=== PATIENT | male | born 1945 | race Caucasian/White ===

== ENCOUNTER 2017-05-17 13:18 | Inpatient (IN) | payer MEDICAID ==
[~2017-05-17] VITALS: Ht 170.2 cm; Wt 76.5 kg
--- NOTE | 2017-05-17 14:07 | NUR ---
PRESENTS SELF TO ED DT RUQ ABDOMINAL PAIN, 10/10, NON RADIATING X 3 DAYS. PATIENT DENIES NAUSEA AND VOMITTING. SKIN IS WARM TO TOUCH AND NON DIAPHORETIC. AFEBRILE. VSS
[2017-05-17 14:31] LABS: BASOPHILS # (AUTO) 0.1 /CMM (0.0-0.2); BASOPHILS % (AUTO) 0.4 % (0.0-2.0); EOSINOPHILS # (AUTO) 0.1 /CMM (0.0-0.7); EOSINOPHILS % (AUTO) 0.9 % (0.0-6.0); HEMATOCRIT 34 % (39-51); HEMOGLOBIN 11.5 g/dL (13.5-17.5); LYMPHOCYTES # (AUTO) 2.4 /CMM (0.8-4.8); LYMPHOCYTES % (AUTO) 14.7 % (20.0-44.0); MEAN CORPUSCULAR HEMOGLOBIN 32 PG (26.0-33.0); MEAN CORPUSCULAR HGB CONC 34 g/dl (31.0-36.0); MEAN CORPUSCULAR VOLUME 94 fL (80-96); MONOCYTES # (AUTO) 1.2 /CMM (0.1-1.30); MONOCYTES % (AUTO) 7.3 % (2.0-12.0); NEUTROPHILS # (AUTO) 12.9 /CMM (1.8-8.9); NEUTROPHILS % (AUTO) 76.7 % (43.0-81.0); PLATELET COUNT (AUTO) 199 /CMM (150-450); RDW COEFFICIENT OF VARIATION 12.3 (11.5-15.0); RED BLOOD CELL COUNT(AUTO) 3.65 MIL/uL (4.5-6.0); WHITE BLOOD COUNT (AUTO) 16.7 K/uL (4.3-11.0)
[2017-05-17 14:41] LABS: CALCIUM, SERUM 8.6 mg/dL (8.5-10.1); CREATININE 2.9 mg/dL (0.6-1.3); POTASSIUM 3.2 mmol/L (3.5-5.1)
[2017-05-17 14:46] LABS: ALBUMIN 3.5 g/dL (3.4-5.0); BILIRUBIN,DIRECT 0.3 mg/dL (0.0-0.2); BILIRUBIN,TOTAL 1.8 mg/dL (0.2-1.0); TOTAL PROTEIN, SERUM 7.2 g/dL (6.4-8.2)
[2017-05-17] MEDS ORDERED: FENTANYL PF 100MCG/2ML AMPUL IV ONE (15:00)
[2017-05-17] MEDS ORDERED: IV NS 0.9% 1,000 ML BAG IV ONE ×2 (15:00)
[2017-05-17] MEDS ORDERED: FENTANYL PF 100MCG/2ML AMPUL ONE (15:05)
[2017-05-17 15:40] LABS: EOSINOPHILS % (MANUAL) 1 % (0-4); LYMPHOCYTES % (MANUAL) 22 % (16-48); MONOCYTES % (MANUAL) 4 % (0-11.0); NEUTROPHILS % (MANUAL) 73 (42-76)
[2017-05-17] MEDS: PIPERACILLIN /TAZOBACTAM 2.25 G in IV D5W 50 ML IV ONE ×2 (15:45→16:20)
[2017-05-17] MEDS ORDERED: ATEN25TA PO (15:46)
[2017-05-17] MEDS ORDERED: LISI2.5T2 PO (15:46)
[2017-05-17] MEDS ORDERED: CHOL100040 PO (15:46)
[2017-05-17] MEDS ORDERED: ATOR20TA PO (15:46)
--- NOTE | 2017-05-17 15:53 | NUR ---
CALLED SURGERY KILN OPERATOR HELPER DR MANCIA, LEFT VOICEMAIL.
--- NOTE | 2017-05-17 15:58 | NUR ---
CALLED [employer], STAFFING RECRUITER WAS PAGED.
[2017-05-17] MEDS ORDERED: POTASSIUM CL. PREMIX PERIPHER. 50 ML IV SCH (16:00)
--- NOTE | 2017-05-17 16:01 | NUR ---
SIMONE IN PROGRESS
[2017-05-17] MEDS ORDERED: POTASSIUM CL. PREMIX PERIPHER. 50 ML ONE (16:10)
--- NOTE | 2017-05-17 16:18 | NUR ---
RECALLED SURGERY MARINE MACHINIST DR MANCIA, LEFT VOICEMAIL.
--- NOTE | 2017-05-17 16:39 | NUR ---
DR BINGHAM ON THE PHONE WITH SURGERY SOCIAL SERVICE COORDINATOR DR MANCIA.
--- NOTE | 2017-05-17 16:59 | NUR ---
TEXTED [facility]
--- NOTE | 2017-05-17 17:00 | NUR ---
[facility]
--- NOTE | 2017-05-17 17:10 | NUR ---
PT TRNSPORTED TO TELE.VSS
[2017-05-17 17:30] VITALS: BP 122/62
--- NOTE | 2017-05-17 17:30 | NUR ---
RN NOTE RECEIVED PT AMBULATORY, AOX4, NO SOB, CO PAIN 10/10, IV IN R FA 18 G, INTACT, ON TELE MONITOR SB 54 BPM, SKIN INTACT, CALL LIGHT WITHIN REACH, BED IN LOW AND LOCKED POSITION, WAITING FOR MRI ABD AND DOCTOR'S ROUNDING AND ADMITTING ORDERS. WILL CONTINUE TO MONITOR.
[2017-05-17] MEDS ORDERED: MORPHINE SULFATE INJ 2 MG/ML DISP.SYRIN IV PRN (18:00)
[2017-05-17] MEDS ORDERED: PIPERACILLIN /TAZOBACTAM 3.375 G in IV D5W 50 ML IV SCH (18:00)
[2017-05-17] MEDS ORDERED: Z GUARD REMEDY 2 OZ OINT TP PRN (18:00)
[2017-05-17] MEDS ORDERED: ONDANSETRON HCL/PF 4 MG/2 ML VIAL IVP PRN (18:00)
[2017-05-17] MEDS: Potassium Chloride 40 MEQ in IV D5/0.45 NACL 1,000 ML IV PRN (19:15)
[2017-05-17 20:00] VITALS: BP_SYST 128; BP_SYST 137; BP_DIAS 72; BP_DIAS 84
--- NOTE | 2017-05-17 20:00 | NUR ---
RN NOTES RECEIVED PT AWAKE ALERT ORIENTED X 3 ABLE TO MAKE KNOWN NEEDS. FAMILY AT BEDSIDE. NO SOB ON RA. SATING 98%. AFEBRILE. C/O PAIN AT HIS ABDOMEN AT SCALE OF 10/10. SR HR 64. IV ON RFA G 18 RUNNING WITH D5 1/2 NS + KCL 40 MEQ @ 100 CC/HR. PAIN MEDICINE WILL BE GIVEN ORDERED. KEPT PT CLEAN AND COMFORTABLE IN BED. WILL CONTINUE TO MONITOR.
[2017-05-17] MEDS: MORPHINE SULFATE INJ 4 MG/ML DISP.SYRIN IV PRN ×2 (20:13→23:43)
[2017-05-17] MEDS: PIPERACILLIN /TAZOBACTAM 2.25 G in IV D5W 50 ML IV SCH (20:13)
[2017-05-17] MEDS ORDERED: MORPHINE SULFATE INJ 4 MG/ML DISP.SYRIN IV PRN (20:30)
--- NOTE | 2017-05-17 20:40 | NUR ---
RN NOTES RN NOTES CALLED [facility] SPOKE WITH DR. GAUTAM WINTER PT COMPLAIN OF HEADACHE. WITH ORDER TO GIVE TYLENOL ORDER. ADMINISTERED TO PATIENT VIA GT WILL CONTINUE TO MONITOR. Addendum: 05/17/17 at 2319 by STEFFANIE TEE RN RN NOTES WRONG PATIENT...
[2017-05-18] VITALS: BP 133/78
[2017-05-18 04:00] VITALS: BP 141/76
[2017-05-18] MEDS: PIPERACILLIN /TAZOBACTAM 2.25 G in IV D5W 50 ML IV SCH ×3 (05:17→18:26)
[2017-05-18] MEDS: Potassium Chloride 40 MEQ in IV D5/0.45 NACL 1,000 ML IV PRN ×2 (05:19→18:26)
[2017-05-18] MEDS: MORPHINE SULFATE INJ 4 MG/ML DISP.SYRIN IV PRN ×4 (05:51→23:02)
--- NOTE | 2017-05-18 07:00 | NUR ---
RN NOTES PT STILL COMPLAINING OF PAIN ON RLQ. PAIN MEDICINE EFFECTIVE FOR AWHILE. ALL NEEDS ATTENDED. NO ACUTE RESP DISTRESS. ALL DUE MEDICINE GIVEN ORDERED. TOLERATED WELL IV ATB GIVEN ORDERED. NO ASE NOTED. PT IS AWARE THAT HE IS NPO AT THIS TIME. ENDORSED CONTINUITY OFC ARE TO AM NURSE.
[2017-05-18 07:16] LABS: BASOPHILS % (AUTO) 0.1 % (0.0-2.0); EOSINOPHILS # (AUTO) 0.2 /CMM (0.0-0.7); EOSINOPHILS % (AUTO) 1.5 % (0.0-6.0); HEMATOCRIT 31 % (39-51); LYMPHOCYTES # (AUTO) 1.6 /CMM (0.8-4.8); LYMPHOCYTES % (AUTO) 12.9 % (20.0-44.0); MEAN CORPUSCULAR HEMOGLOBIN 33 PG (26.0-33.0); MEAN CORPUSCULAR HGB CONC 35 g/dl (31.0-36.0); MEAN CORPUSCULAR VOLUME 94 fL (80-96); MONOCYTES % (AUTO) 7.9 % (2.0-12.0); NEUTROPHILS # (AUTO) 9.6 /CMM (1.8-8.9); NEUTROPHILS % (AUTO) 77.6 % (43.0-81.0); PLATELET COUNT (AUTO) 157 /CMM (150-450); RDW COEFFICIENT OF VARIATION 13.1 (11.5-15.0); RED BLOOD CELL COUNT(AUTO) 3.35 MIL/uL (4.5-6.0); WHITE BLOOD COUNT (AUTO) 12.4 K/uL (4.3-11.0)
[2017-05-18 07:26] LABS: ALBUMIN 2.5 g/dL (3.4-5.0); BILIRUBIN,TOTAL 2.6 mg/dL (0.2-1.0); CREATININE 1.3 mg/dL (0.6-1.3); MAGNESIUM 1.8 mg/dL (1.8-2.4); PHOSPHORUS 2.7 mg/dL (2.5-4.9); POTASSIUM 2.9 mmol/L (3.5-5.1); TOTAL PROTEIN, SERUM 6.3 g/dL (6.4-8.2)
[2017-05-18 07:40] LABS: THYROID STIMULATING HORMONE 1.561 uIU/mL (0.358-3.74)
[2017-05-18 08:00] VITALS: BP 137/75
[2017-05-18] MEDS: FAMOTIDINE/PF INJ 20 MG/2 ML VIAL IV SCH (09:00)
[2017-05-18] MEDS ORDERED: POTASSIUM CL. PREMIX PERIPHER. 50 ML IV SCH (10:48)
[2017-05-18] MEDS: POTASSIUM CHLORIDE 20 MEQ TAB.PRT.SR PO SCH ×2 (11:40→12:45)
[2017-05-18 12:00] VITALS: BP 121/76
[2017-05-18] MEDS ORDERED: IBUPROFEN 400 MG TABLET PO PRN (12:30)
--- NOTE | 2017-05-18 12:38 | NUR ---
SSIS DEVELOPER NOTE PATIENT GAVE ME A LIST OF HIS HOME MEDICATIONS- SHOWN TO DR. MOODY HERRERA. DOCTOR GAVE A VERBAL ORDER TO INPUT MEDICATIONS IN PATIENTS ORDERS- INFORMED MD THAT MEDICATIONS HAVE BEEN INPUT FOR DOCTOR TO REVIEW.
[2017-05-18] MEDS: ATENOLOL 50 MG TABLET PO SCH (12:46)
[2017-05-18 16:00] VITALS: BP 111/69
--- NOTE | 2017-05-18 18:03 | NUR ---
SPOKE TO MOODY HERRERA WHO SAID THE SURGEON WONT BE ABLE TO OPERATE UNTIL POSSIBLY MONDAY. MD GAVE VERBAL ORDERS TO START REGULAR DIET. INFORMED PATIENT.
--- NOTE | 2017-05-18 19:05 | NUR ---
RN OPENING NOTES RECEIVED REPORT FROM AKSHAT MCNEAL. PATIENT A/A/O X4, ABLE TO MAKE NEEDS KNOWN. NO C/O OF RESPIRATORY DISTRESS OR SOB, ON ROOM AIR. ON TELE SINUS DAVID IN THE 50S-60S. DENIES ANY PAIN OR DISCOMFORT. RIGHT FOREARM IV SITE #18 CDI W/ D5 1/2 NS + KCL 40 MEQ @ 100 ML/HR. AMBULATORY W/ BRP. BED LOCKED AND IN LOWEST POSITION, CALL LIGHT WITHIN REACH. FAMILY @ BEDSIDE. WILL CONTINUE TO MONITOR.
[2017-05-18 20:00] VITALS: BP 113/67
[2017-05-18] MEDS: TAMSULOSIN 0.4 MG CAP.SR.24H PO SCH (22:03)
[2017-05-19] VITALS: BP 147/75
[2017-05-19] MEDS: PIPERACILLIN /TAZOBACTAM 2.25 G in IV D5W 50 ML IV SCH ×5 (00:08→23:29)
[2017-05-19 04:00] VITALS: BP 167/75
--- NOTE | 2017-05-19 06:00 | NUR ---
RN NOTES PATIENT SEEN AND EXAMINED BY DR MANCIA, SURGEON. PER MD, HE WILL NOT PERFORM SURGERY TODAY AND OKAY FOR PATIENT TO EAT TODAY 05/19.
--- NOTE | 2017-05-19 07:04 | NUR ---
RN CLOSING NOTES PATIENT AWAKE IN BED. NO ACUTE RESPIRATORY DISTRESS THROUGHOUT SHIFT. TELE SINUS RHYTHM THROUGHOUT IN THE 60S. RIGHT FOREARM IV SITE DC'D AND NEW IV SITE STARTED ON LEFT WRIST #22 W/ D5 1/2 NS + KCL 40 MEQ @ 100 ML/HR, TOLERATED WELL. NO SIGNIFICANT CHANGES OVERNIGHT. DENIES ANY PAIN OR DISCOMFORT @ THIS TIME. WILL ENDORSE JUNAID TO AM NURSE.
[2017-05-19 08:00] VITALS: BP 156/93
[2017-05-19] MEDS: ATORVASTATIN 40 MG TABLET PO SCH (08:11)
[2017-05-19] MEDS: LISINOPRIL (20MG) 20 MG TABLET PO SCH (08:11)
[2017-05-19] MEDS: CHOLECALCIFEROL (VITAMIN D 3) 400 UNIT TABLET PO SCH (08:11)
[2017-05-19] MEDS: ATENOLOL 50 MG TABLET PO SCH (08:12)
[2017-05-19] MEDS: FOLIC ACID 1 MG TABLET PO SCH (08:12)
[2017-05-19] MEDS: ASPIRIN 81 MG TAB.CHEW PO SCH (08:12)
[2017-05-19] MEDS: FAMOTIDINE/PF INJ 20 MG/2 ML VIAL IV SCH (08:12)
[2017-05-19] MEDS ORDERED: HOME MED MISCELLANEOUS PO SCH (09:00)
[2017-05-19 10:16] LABS: BASOPHILS % (AUTO) 0.1 % (0.0-2.0); EOSINOPHILS # (AUTO) 0.2 /CMM (0.0-0.7); EOSINOPHILS % (AUTO) 1.6 % (0.0-6.0); HEMATOCRIT 37 % (39-51); HEMOGLOBIN 12.5 g/dL (13.5-17.5); LYMPHOCYTES # (AUTO) 1.9 /CMM (0.8-4.8); LYMPHOCYTES % (AUTO) 13.9 % (20.0-44.0); MEAN CORPUSCULAR HEMOGLOBIN 32 PG (26.0-33.0); MEAN CORPUSCULAR HGB CONC 33 g/dl (31.0-36.0); MEAN CORPUSCULAR VOLUME 95 fL (80-96); MONOCYTES # (AUTO) 0.8 /CMM (0.1-1.30); MONOCYTES % (AUTO) 6.2 % (2.0-12.0); NEUTROPHILS # (AUTO) 10.5 /CMM (1.8-8.9); NEUTROPHILS % (AUTO) 78.2 % (43.0-81.0); PLATELET COUNT (AUTO) 223 /CMM (150-450); RED BLOOD CELL COUNT(AUTO) 3.94 MIL/uL (4.5-6.0); WHITE BLOOD COUNT (AUTO) 13.5 K/uL (4.3-11.0)
[2017-05-19 10:26] LABS: ALBUMIN 3.1 g/dL (3.4-5.0); BILIRUBIN,TOTAL 1.7 mg/dL (0.2-1.0); CALCIUM, SERUM 9.4 mg/dL (8.5-10.1); CREATININE 1.3 mg/dL (0.6-1.3); MAGNESIUM 1.9 mg/dL (1.8-2.4); PHOSPHORUS 3.2 mg/dL (2.5-4.9); POTASSIUM 3.9 mmol/L (3.5-5.1)
[2017-05-19] MEDS: MORPHINE SULFATE INJ 4 MG/ML DISP.SYRIN IV PRN (11:25)
[2017-05-19 16:00] VITALS: BP 136/79
--- NOTE | 2017-05-19 19:30 | NUR ---
MS RN NOTE RECEIVED PATIENT FROM DAY SHIFT, PATIENT IS ALERT AND ORIENTEDX4, NO S/S OF RESPIRATORY DISTRESS OR PAIN AT THIS TIME. IV ON LEFT WRIST 22G IS PATENT AND INTACT, OKAY TO HOLD THE FLUID PER DR SHAIKH. PLANNING TO HAVE SURGERY TOMORROW FOR CHOLECYSTITIS, WILL F/U WITH SURGEON. SRX2, BED IN LOW POSITION, CALL LIGHT WITHIN REACH, WILL CONTINUE TO MONITOR PATIENT.
--- NOTE | 2017-05-19 19:34 | NUR ---
PER MOODY HERRERA, NPO IN AM AND OK TO HOLD IV FLUIDS AT THIS TIME PATIENT REQUESTS THEM HELD.
[2017-05-19 20:00] VITALS: BP 149/80
--- NOTE | 2017-05-19 20:30 | NUR ---
MS RN NOTE DR. MARTINO SAW THE PATIENT AND PLANNING TO DO LAPAROSCOPIC CHOLECYSTECTOMY TOMORROW IN AM. FAMILY MADE AWARE AND GOT CONSENT FORMS FROM THE PATIENT.
[2017-05-19 21:00] VITALS: BP 149/80
[2017-05-19] MEDS: TAMSULOSIN 0.4 MG CAP.SR.24H PO SCH (21:10)
[2017-05-19] MEDS: HYDROCODONE/APAP 5/325MG 1 EACH TABLET PO PRN (21:15)
[2017-05-20] VITALS (7 sets, daily range): BP systolic 127–175; BP diastolic 61–90
--- NOTE | 2017-05-20 04:30 | NUR ---
MS RN NOTES PTS NOTED BLOOD PRESSURE OF 180/[address] HERRMANN AWAITING FOR REPLY.MORPHINE 2MG GIVEN ORDERED FOR PAIN.WILL CONTINUE TO MONITOR PTS.
[2017-05-20] MEDS: PIPERACILLIN /TAZOBACTAM 2.25 G in IV D5W 50 ML IV SCH ×3 (05:26→21:48)
--- NOTE | 2017-05-20 06:20 | NUR ---
MS RN NOTE PATIENT'S IV WAS PULLED OUT, REINSERTED ON RIGHT FA 20G, GOOD BLOOD RETURN PRESENT. LEFT ARM WAS SWOLLEN, PROVIDED ICE PACK WELL.
--- NOTE | 2017-05-20 06:45 | NUR ---
MS RN NOTE PATIENT IS RESTING IN BED, NO ACUTE CHANGE OF CONDITION PRESENT DURING THE DIRECTOR OF BROADCAST. IV IS PATENT AND INTACT, NO S/S OF RESPIRATORY DISTRESS OR PAIN. WILL ENDORSE TO DAY SHIFT NURSE FOR JUNAID.
[2017-05-20 06:47] LABS: BASOPHILS % (AUTO) 0.3 % (0.0-2.0); EOSINOPHILS # (AUTO) 0.3 /CMM (0.0-0.7); EOSINOPHILS % (AUTO) 2.5 % (0.0-6.0); HEMATOCRIT 32 % (39-51); HEMOGLOBIN 10.7 g/dL (13.5-17.5); LYMPHOCYTES # (AUTO) 1.7 /CMM (0.8-4.8); LYMPHOCYTES % (AUTO) 14.3 % (20.0-44.0); MEAN CORPUSCULAR HEMOGLOBIN 32 PG (26.0-33.0); MEAN CORPUSCULAR HGB CONC 34 g/dl (31.0-36.0); MEAN CORPUSCULAR VOLUME 95 fL (80-96); MONOCYTES % (AUTO) 8.8 % (2.0-12.0); NEUTROPHILS # (AUTO) 8.7 /CMM (1.8-8.9); NEUTROPHILS % (AUTO) 74.1 % (43.0-81.0); PLATELET COUNT (AUTO) 201 /CMM (150-450); RDW COEFFICIENT OF VARIATION 13.1 (11.5-15.0); RED BLOOD CELL COUNT(AUTO) 3.35 MIL/uL (4.5-6.0); WHITE BLOOD COUNT (AUTO) 11.8 K/uL (4.3-11.0)
[2017-05-20 07:06] LABS: ALBUMIN 2.8 g/dL (3.4-5.0); BILIRUBIN,TOTAL 1.1 mg/dL (0.2-1.0); CALCIUM, SERUM 8.7 mg/dL (8.5-10.1); CREATININE 1.5 mg/dL (0.6-1.3); MAGNESIUM 1.8 mg/dL (1.8-2.4); PHOSPHORUS 3.7 mg/dL (2.5-4.9); POTASSIUM 3.2 mmol/L (3.5-5.1); TOTAL PROTEIN, SERUM 7.4 g/dL (6.4-8.2)
--- NOTE | 2017-05-20 07:15 | NUR ---
MS RN NOTE: RECEIVED PATIENT SITTING IN CHAIR IN BED A&OX4. ON RA WITH NO SIGNS OF SOB OR RESPIRATORY DISTRESS. SKIN WARM TO TOUCH, DENIES PAIN. RFA # 20G INTACT AND PATENT. CARE PLAN REVIEWED WITH PATIENT. BED LOW, LOCKED WITH CALL LIGHT WITHIN REACH. ALL NEEDS MET AND ANTICIPATED. WILL CONT TO MONITOR.
--- NOTE | 2017-05-20 08:45 | NUR ---
MS RN NOTE: 0900 MEDICATIONS NOT GIVEN DUE TO NPO STATUS. REVIEWED CARE PLAN TO PATIENT AND PER PATIENT DOES NOT WANT ANY MEDICATIONS BECAUSE HE DOES NOT WANT TO WAIT FOR SURGERY ANYMORE. EXPLAINED RISKS AND BENEFITS, BUT PATIENT STILL REFUSED CARE PLAN. OFFERED TO CONTACT MARKETING PROGRAM MANAGER, SURGEON AND SENIOR RISK ANALYST GREGORY ISAACS, BUT PATIENT REFUSED SAYING "I'M NOT WAITING ANYMORE. I'VE BEEN HERE FOREVER AND I WANT TO GO HOME." REVIEWED AGAIN RISKS AND BENEFITS, BUT PATIENT INSISTED ON LEAVING. EDUCATED PATIENT ON FOLLOW UP CARE WITH PRIMARY DOCTOR, SPECIALISTS, MEDICATIONS PRESCRIBED AND S/S OF WHEN TO SEEK MEDICAL ATTENTION. CHARGE NURSE NOTIFIED. AMA FORMS AND BELONGINGS LIST SIGNED. RFA AND WRISTBAND REMOVED. PATIENT LEFT THE UNIT AMBULATORY.
[2017-05-20] MEDS: CHOLECALCIFEROL (VITAMIN D 3) 400 UNIT TABLET PO SCH (09:00)
[2017-05-20] MEDS: FAMOTIDINE/PF INJ 20 MG/2 ML VIAL IV SCH (09:00)
[2017-05-20] MEDS: FOLIC ACID 1 MG TABLET PO SCH (09:00)
[2017-05-20] MEDS: ASPIRIN 81 MG TAB.CHEW PO SCH (09:00)
[2017-05-20] MEDS: LISINOPRIL (20MG) 20 MG TABLET PO SCH (09:00)
[2017-05-20] MEDS: ATENOLOL 50 MG TABLET PO SCH (09:00)
[2017-05-20] MEDS: ATORVASTATIN 40 MG TABLET PO SCH (09:00)
--- NOTE | 2017-05-20 09:10 | NUR ---
MS RN NOTE: PATIENT RETURNED TO THE UNIT AND BROUGHT IN BY . PER CHARGE NURSE SOON, OK TO CONT CARE PLAN FOR PATIENT. NO LONGER AMA STATUS. WILL CONT TO MONITOR.
--- NOTE | 2017-05-20 09:40 | NUR ---
MS RN NOTE: PYROTECHNIST MOODY AT BEDSIDE.
--- NOTE | 2017-05-20 11:20 | NUR ---
MS RN NOTE: PHARMACY CALLED REGARDING D/C OF IV FLUIDS SINCE LAB K IS 3.2. REFER TO NURSING NOTE ON 05/19/171933. BLADDER TIER MOODY SHAIKH NOTIFIED AND VERBAL ORDER OF K 40 MEQ PO ONCE WITH A SIP OF WATER. CHARGE NURSE NOTIFIED AND ORDER ENTERED. PHARMACY ALSO CONTACTED FOR UPDATE.
--- NOTE | 2017-05-20 11:20 | NUR ---
MS RN NOTE: US TECH AT BEDSIDE FOR US OF THE HEART.
[2017-05-20] MEDS ORDERED: POTASSIUM CHLORIDE 20 MEQ TAB.PRT.SR PO ONE (11:30)
--- NOTE | 2017-05-20 14:00 | NUR ---
MS RN NOTE: MONEY LAUNDERING INVESTIGATOR CALLED REQUESTING ORDER FOR CARDIAC DIET AFTER SURGERY.
[2017-05-20] MEDS ORDERED: BUPIVACAINE MPF W/EPI 0.25% 30 ML VIAL ONE (15:37)
[2017-05-20] MEDS ORDERED: LIDOCAINE 0.5% HCL 50 ML VIAL ONE (15:37)
--- NOTE | 2017-05-20 15:40 | NUR ---
MS RN NOTE: PATIENT TAKEN TO SURGERY.
[2017-05-20] MEDS ORDERED: HYDROMORPHONE INJ 2 MG/ML DISP.SYRIN ONE (15:57)
[2017-05-20] MEDS ORDERED: ROCURONIUM BROMIDE 50 MG/5 ML ONE ×2 (15:58→18:43)
[2017-05-20] MEDS ORDERED: SUCCINYLCHOLINE CHLORIDE 20 MG/ML VIAL ONE (15:58)
[2017-05-20] MEDS ORDERED: CELLULOSE,OXIDIZED 1 PKT EACH MC ONE (19:02)
--- NOTE | 2017-05-20 19:30 | NUR ---
MS CLOSING RN NOTE: PATIENT STILL AT OR. ENDORSED TO VOTING MACHINE MECHANIC NURSE FOR JUNAID.
[2017-05-20] MEDS ORDERED: ANESTHESIA TRAY IN PYXIS 1 EA TRAY MC ONE (20:17)
--- NOTE | 2017-05-20 20:45 | NUR ---
MS RN NOTES RECEIVED PTS FROM OPERATING ROOM NURSE .S/P LAPAROSCOPIC CHOLECYSTECTOMY , PTS AWAKE AND RESPONSIVE , V/S BP IS 175 /90 . KEPT PTS REPOSITION AND COMFORTABLE IN BED , WITH 02 AT 2 LITERS VIA NC SATING 94% POST OP ORDER NOTED AND CARRIED OUT , AT BEDSIDE UPDATED WITH PTS CURRENT CONDITION PTS NOTED WITH 4 POST OP SITE NO BLEEDING NOTED AND 1 RAFAEL MARTINA DRAINAGE TUBE NOTED WITH SLIGHT STAIN OF BLOOD ON THE DRESSING SITE , RACHELL TUBE DRAINING WITH SANGUINEOUS FLUID IN SMALL AMT . V/S STABLE PAIN MEDICATION ( MORPHINE 2 MG IV PRN GIVEN ORDERED, )WILL CONTINUE TO MONITOR PTS.
[2017-05-20] MEDS ORDERED: MORPHINE SULFATE INJ 2 MG/ML DISP.SYRIN ONE (21:32)
[2017-05-20] MEDS: MORPHINE SULFATE INJ 2 MG/ML DISP.SYRIN IV PRN (21:46)
[2017-05-20] MEDS: IV LR 1000 ML 1,000 ML IV PRN (21:47)
[2017-05-20] MEDS: TAMSULOSIN 0.4 MG CAP.SR.24H PO SCH (21:57)
[2017-05-21] VITALS (8 sets, daily range): BP systolic 142–180; BP diastolic 74–98
[2017-05-21] MEDS ORDERED: MORPHINE SULFATE INJ 2 MG/ML DISP.SYRIN ONE ×2 (01:45→05:10)
[2017-05-21] MEDS: MORPHINE SULFATE INJ 2 MG/ML DISP.SYRIN IV PRN ×6 (01:53→17:44)
[2017-05-21] MEDS: IV LR 1000 ML 1,000 ML IV PRN ×2 (05:07→23:29)
[2017-05-21] MEDS: PIPERACILLIN /TAZOBACTAM 2.25 G in IV D5W 50 ML IV SCH ×3 (06:26)
[2017-05-21] MEDS ORDERED: hydrALAZINE HCL IV 20 MG VIAL IV PRN (06:30)
--- NOTE | 2017-05-21 06:30 | NUR ---
SPOKE TO DR HERRMANN RELAYED BLOOD PRESSURE , WITH ORDER MADE AND CARRIED OUT HYDRALAZINE 10 MG IV Q6HRS PRN FOR SBP >160 GIVEN ,WILL CONTINUE TO MONITOR PTS.
[2017-05-21] MEDS ORDERED: hydrALAZINE HCL IV 20 MG VIAL ONE (06:36)
[2017-05-21 07:05] LABS: BASOPHILS % (AUTO) 0.1 % (0.0-2.0); HEMATOCRIT 30 % (39-51); HEMOGLOBIN 10.2 g/dL (13.5-17.5); LYMPHOCYTES # (AUTO) 1.8 /CMM (0.8-4.8); LYMPHOCYTES % (AUTO) 15.2 % (20.0-44.0); MEAN CORPUSCULAR HEMOGLOBIN 32 PG (26.0-33.0); MEAN CORPUSCULAR HGB CONC 34 g/dl (31.0-36.0); MEAN CORPUSCULAR VOLUME 95 fL (80-96); MONOCYTES # (AUTO) 0.7 /CMM (0.1-1.30); NEUTROPHILS # (AUTO) 9.3 /CMM (1.8-8.9); NEUTROPHILS % (AUTO) 78.7 % (43.0-81.0); PLATELET COUNT (AUTO) 215 /CMM (150-450); RDW COEFFICIENT OF VARIATION 13.2 (11.5-15.0); RED BLOOD CELL COUNT(AUTO) 3.16 MIL/uL (4.5-6.0); WHITE BLOOD COUNT (AUTO) 11.9 K/uL (4.3-11.0)
--- NOTE | 2017-05-21 07:28 | NUR ---
PATIENT TRANSFERRED TO [facility] STATUS ORDERED. PATIENT'S BP RIGHT NOW IS, 153/79. WITH A TOTAL OUTPUT OF 75CC SEROSANGUINEOUS DRAINAGE ON RAFAEL-MG DRAIN. PATIENT STARTED ON CLEAR LIQUIDS FOR BREAKFAST. PATIENT HAS BEEN COMPLIANT WITH USE OF INCENTIVE SPIROMETER Q1H. SCD IN PLACE. ENDORSED ACCORDINGLY TO NEXT SHIFT.
[2017-05-21 07:33] LABS: ALBUMIN 2.3 g/dL (3.4-5.0); BILIRUBIN,TOTAL 0.9 mg/dL (0.2-1.0); CALCIUM, SERUM 8.4 mg/dL (8.5-10.1); CREATININE 1.1 mg/dL (0.6-1.3); POTASSIUM 3.8 mmol/L (3.5-5.1); TOTAL PROTEIN, SERUM 6.8 g/dL (6.4-8.2)
--- NOTE | 2017-05-21 08:00 | NUR ---
MS RN NOTE: RECEIVED PATIENT RESTING IN BED A&OX4. ON2 L NC WITH NO SIGNS OF SOB OR RESPIRATORY DISTRESS. SKIN WARM TO TOUCH, DENIES PAIN. RFA # 20G INTACT AND PATENT. CARE PLAN REVIEWED WITH PATIENT. BED LOW, LOCKED WITH CALL LIGHT WITHIN REACH. ALL NEEDS MET AND ANTICIPATED. WILL CONT TO MONITOR.
[2017-05-21] MEDS: ASPIRIN 81 MG TAB.CHEW PO SCH (08:49)
[2017-05-21] MEDS: FOLIC ACID 1 MG TABLET PO SCH (08:49)
[2017-05-21] MEDS: LISINOPRIL (20MG) 20 MG TABLET PO SCH (08:49)
[2017-05-21] MEDS: ATORVASTATIN 40 MG TABLET PO SCH (08:49)
[2017-05-21] MEDS: ATENOLOL 50 MG TABLET PO SCH (08:50)
[2017-05-21] MEDS: FAMOTIDINE/PF INJ 20 MG/2 ML VIAL IV SCH (08:50)
[2017-05-21] MEDS: CHOLECALCIFEROL (VITAMIN D 3) 400 UNIT TABLET PO SCH (08:51)
[2017-05-21] MEDS ORDERED: CIPR-262 PO (10:25)
[2017-05-21] MEDS ORDERED: ASPI81TA2 PO (10:25)
[2017-05-21] MEDS ORDERED: METR500T PO (10:25)
[2017-05-21] MEDS ORDERED: CHOL400T11 PO (10:25)
[2017-05-21] MEDS ORDERED: TAMS-12 PO (10:25)
[2017-05-21] MEDS ORDERED: ATOR40TA PO (10:25)
[2017-05-21] MEDS ORDERED: ATEN50TA PO (10:25)
[2017-05-21] MEDS ORDERED: FOLI1TAB16 PO (10:25)
[2017-05-21] MEDS ORDERED: LISI20TA61 PO (10:25)
[2017-05-21] MEDS ORDERED: HYDR-3326 PO (10:25)
[2017-05-21] MEDS: PIPERACILLIN /TAZOBACTAM 3.375 G in IV D5W 50 ML IV SCH ×3 (12:11→23:27)
--- NOTE | 2017-05-21 18:43 | NUR ---
MS RN NOTE: RECEIVED PATIENT RESTING IN BED A&OX4. ON2 L NC WITH NO SIGNS OF SOB OR RESPIRATORY DISTRESSTHROUGHOUT THE SHIFT . SKIN WARM TO TOUCH, STATES PAIN THROUGHOUT THE SHIFT ONLY REQUEST MORPHINE Q2HRS. NORCO OFFERED HOWEVER PATIENT REFUSED . PT HAS RFA # 20G INTACT AND PATENT.BED LOW, LOCKED WITH CALL LIGHT WITHIN REACH. ALL NEEDS MET AND ANTICIPATED. WILL ENDORSE TO PM RN FOR CONT TO MONITOR.
[2017-05-21] MEDS: HYDROCODONE/APAP 5/325MG 1 EACH TABLET PO PRN (19:06)
--- NOTE | 2017-05-21 19:30 | NUR ---
RN NOTES PT AWAKE ON BED WATCHING TV. NO ACUTE RESP DISTRESS SHOWS. TEMP 100 DEG. DENIES ANY PAIN AT THIS TIME. AOX 3 ABLE TO MAKE KNOWN NEEDS. IV STIE ON LAC G 20 RUNNING WITH LR @ 150 CC/HR INTACT AND PATENT. F/C DRAINED WITH YELLOW COLOR URINE. WITH RACHELL DRAINED WITH SEROSANGUINEOUS OUTPUT FROM S/P CHOLECYSTECTOMY. ABLE TO AMBULATE WITH ASSIST TO THE BATHROOM FOR BOWEL. COOLING MEASURES PROVIDED. SPIROMETER GIVEN. KEPT PT CLEAN AND COMFORTABLE IN BED. WILL CONTINUE TO MONITOR.
[2017-05-21] MEDS: TAMSULOSIN 0.4 MG CAP.SR.24H PO SCH (21:08)
[2017-05-21] MEDS: hydrALAZINE HCL 25 MG TABLET PO PRN (23:27)
--- NOTE | 2017-05-22 00:30 | NUR ---
RN NOTES PT ASLEEP AT THIS TIME. RECHECKED VS BP 154/93MMHG MEDICINE EFFECTIVE. PT STILL DENIES PAIN. WILL CONTINUE TO MONITOR.
[2017-05-22 04:00] VITALS: BP_SYST 104; BP_SYST 133; BP_DIAS 78; BP_DIAS 91
[2017-05-22] MEDS: PIPERACILLIN /TAZOBACTAM 3.375 G in IV D5W 50 ML IV SCH ×4 (05:01→23:48)
[2017-05-22] MEDS: IV LR 1000 ML 1,000 ML IV PRN (05:10)
[2017-05-22] MEDS: MORPHINE SULFATE INJ 2 MG/ML DISP.SYRIN IV PRN ×4 (05:38→15:26)
--- NOTE | 2017-05-22 06:29 | NUR ---
115-2 PT ASLEEP WELL ON BED. NO ACUTE RESP DISTRESS TOLERATED O2 2LPM VIA NC SATING 97%. WARMTH TO TOUCH TMAX 100 DEG. LOWEST @ 98.1 COOLING MEASURES CONTINUE TO RENDERED. F/C WITH GOOD OUTPUT WITH YELLOW CLEAR COLOR URINE. RACHELL DRAINED WITH 70 CC SEROSANGUINEOUS. KEPT PT CLEAN AND DRY. BLOOD DRAWN BY LAB STAFF. WILL ENDORSED CONTINUITY OF CARE TO AM NURSE.
[2017-05-22 07:09] LABS: BASOPHILS % (AUTO) 0.1 % (0.0-2.0); EOSINOPHILS # (AUTO) 0.3 /CMM (0.0-0.7); EOSINOPHILS % (AUTO) 2.2 % (0.0-6.0); HEMATOCRIT 32 % (39-51); LYMPHOCYTES # (AUTO) 1.8 /CMM (0.8-4.8); LYMPHOCYTES % (AUTO) 16.4 % (20.0-44.0); MEAN CORPUSCULAR HEMOGLOBIN 33 PG (26.0-33.0); MEAN CORPUSCULAR HGB CONC 34 g/dl (31.0-36.0); MEAN CORPUSCULAR VOLUME 95 fL (80-96); MONOCYTES # (AUTO) 0.9 /CMM (0.1-1.30); MONOCYTES % (AUTO) 7.6 % (2.0-12.0); NEUTROPHILS # (AUTO) 8.3 /CMM (1.8-8.9); NEUTROPHILS % (AUTO) 73.7 % (43.0-81.0); PLATELET COUNT (AUTO) 261 /CMM (150-450); RED BLOOD CELL COUNT(AUTO) 3.39 MIL/uL (4.5-6.0); WHITE BLOOD COUNT (AUTO) 11.3 K/uL (4.3-11.0)
[2017-05-22 07:44] LABS: ALBUMIN 2.2 g/dL (3.4-5.0); BILIRUBIN,DIRECT 0.2 mg/dL (0.0-0.2); BILIRUBIN,TOTAL 0.9 mg/dL (0.2-1.0); CALCIUM, SERUM 8.5 mg/dL (8.5-10.1); MAGNESIUM 1.3 mg/dL (1.8-2.4); PHOSPHORUS 2.5 mg/dL (2.5-4.9); POTASSIUM 3.3 mmol/L (3.5-5.1); TOTAL PROTEIN, SERUM 6.9 g/dL (6.4-8.2)
[2017-05-22 08:00] VITALS: BP 180/95
[2017-05-22] MEDS: ASPIRIN 81 MG TAB.CHEW PO SCH (08:12)
[2017-05-22] MEDS: LISINOPRIL (20MG) 20 MG TABLET PO SCH (08:12)
[2017-05-22] MEDS: CHOLECALCIFEROL (VITAMIN D 3) 400 UNIT TABLET PO SCH (08:12)
[2017-05-22] MEDS: FOLIC ACID 1 MG TABLET PO SCH (08:12)
[2017-05-22] MEDS: FAMOTIDINE/PF INJ 20 MG/2 ML VIAL IV SCH (08:12)
[2017-05-22] MEDS: ATORVASTATIN 40 MG TABLET PO SCH (08:12)
[2017-05-22] MEDS: ATENOLOL 50 MG TABLET PO SCH (08:13)
--- NOTE | 2017-05-22 09:24 | NUR ---
MS INITIAL RN NOTE: RECEIVED PATIENT RESTING IN BED A&OX4. ON2 L NC WITH NO SIGNS OF SOB OR RESPIRATORY DISTRESS. SKIN WARM TO TOUCH, DENIES PAIN. LAC # 20G AND LFA 22 G INTACT AND PATENT. CARE PLAN REVIEWED WITH PATIENT. BED LOW, LOCKED WITH CALL LIGHT WITHIN REACH. ALL NEEDS MET AND ANTICIPATED. WILL CONT TO MONITOR.
[2017-05-22] MEDS: HYDROCODONE/APAP 5/325MG 1 EACH TABLET PO PRN (09:31)
[2017-05-22] MEDS: AMLODIPINE BESYLATE 5 MG TABLET PO SCH (11:03)
[2017-05-22] MEDS ORDERED: POTASSIUM CHLORIDE 20 MEQ TAB.PRT.SR PO SCH (11:30)
[2017-05-22] MEDS: Magnesium 1GM/D5W 100ML PREMIX 100 ML IV SCH ×4 (11:39→17:31)
--- NOTE | 2017-05-22 12:45 | NUR ---
RN NOTE PATIENT GREEN CATHETER REMOVED PER MD ORDERS
[2017-05-22 16:00] VITALS: BP 128/67
--- NOTE | 2017-05-22 18:28 | NUR ---
MS RN NOTE: RECEIVED PATIENT RESTING IN BED A&OX4. ON2 L NC WITH NO SIGNS OF SOB OR RESPIRATORY DISTRESS THROUGHOUT THE SHIFT . SKIN WARM TO TOUCH, STATES PAIN THROUGHOUT THE SHIFT ONLY REQUEST MORPHINE Q2HRS. NORCO ALSO GIVEN PER PATIENT REQUEST . PT HAS LFA # 20G L22G LAC INTACT AND PATENT.BED LOW, LOCKED WITH CALL LIGHT WITHIN REACH. ALL NEEDS MET AND ANTICIPATED. WILL ENDORSE TO PM RN FOR CONT TO MONITOR. F/C REMOVED POSSIBLE D/C IN THE AM
--- NOTE | 2017-05-22 19:05 | NUR ---
RN OPENING NOTES RECEIVED REPORT FROM BRIANA MCNEAL. PATIENT A/A/O X4, ABLE TO MAKE NEEDS KNOWN. NO C/O SOB OR DIFFICULTY BREATHING, ON ROOM AIR. PULSES PRESENT. LEFT AC IV SITE #20 CDI W/ LACTATED RINGERS @ 150 ML/HR. RACHELL DRAIN INTACT AND DRAINING WELL. AMBULATORY W/ BRP. DENIES ANY PAIN OR DISCOMFORT @ THIS TIME. CALL LIGHT WITHIN REACH, BED LOCKED, FAMILY @ BEDSIDE. WILL CONTINUE TO MONITOR.
[2017-05-22 20:00] VITALS: BP 145/72
--- NOTE | 2017-05-22 21:00 | NUR ---
RN NOTES PATIENT SEEN AND EXAMINED BY DR MARTINO. RACHELL DRAIN REMOVED W/ NO COMPLICATIONS.
[2017-05-22] MEDS: TAMSULOSIN 0.4 MG CAP.SR.24H PO SCH (21:57)
[2017-05-23 04:00] VITALS: BP 168/87
[2017-05-23] MEDS: hydrALAZINE HCL 25 MG TABLET PO PRN (04:33)
[2017-05-23] MEDS: PIPERACILLIN /TAZOBACTAM 3.375 G in IV D5W 50 ML IV SCH ×2 (05:05→12:00)
[2017-05-23 07:07] LABS: BASOPHILS % (AUTO) 0.2 % (0.0-2.0); EOSINOPHILS # (AUTO) 0.3 /CMM (0.0-0.7); EOSINOPHILS % (AUTO) 3.4 % (0.0-6.0); HEMATOCRIT 31 % (39-51); HEMOGLOBIN 10.6 g/dL (13.5-17.5); LYMPHOCYTES # (AUTO) 1.9 /CMM (0.8-4.8); LYMPHOCYTES % (AUTO) 19.8 % (20.0-44.0); MEAN CORPUSCULAR HEMOGLOBIN 32 PG (26.0-33.0); MEAN CORPUSCULAR HGB CONC 35 g/dl (31.0-36.0); MEAN CORPUSCULAR VOLUME 93 fL (80-96); MONOCYTES # (AUTO) 0.6 /CMM (0.1-1.30); MONOCYTES % (AUTO) 5.7 % (2.0-12.0); NEUTROPHILS # (AUTO) 6.9 /CMM (1.8-8.9); NEUTROPHILS % (AUTO) 70.9 % (43.0-81.0); PLATELET COUNT (AUTO) 291 /CMM (150-450); RDW COEFFICIENT OF VARIATION 12.8 (11.5-15.0); RED BLOOD CELL COUNT(AUTO) 3.29 MIL/uL (4.5-6.0); WHITE BLOOD COUNT (AUTO) 9.8 K/uL (4.3-11.0)
[2017-05-23 07:26] LABS: CALCIUM, SERUM 8.4 mg/dL (8.5-10.1); POTASSIUM 3.2 mmol/L (3.5-5.1)
--- NOTE | 2017-05-23 07:26 | NUR ---
RN CLOSING NOTES PATIENT AWAKE IN BED. NO C/O DIFFICULTY BREATHING THROUGHOUT SHIFT. DENIES ANY PAIN OR DISCOMFORT @ THIS TIME. LEFT AC AND LEFT FOREARM IV SITES KEPT CLEAN AND DRY. NO COMPLICATIONS NOTED. WILL ENDORSE JUNAID TO AM SHIFT.
[2017-05-23 07:29] LABS: ALBUMIN 2.1 g/dL (3.4-5.0); BILIRUBIN,DIRECT 0.2 mg/dL (0.0-0.2); BILIRUBIN,TOTAL 0.8 mg/dL (0.2-1.0); TOTAL PROTEIN, SERUM 6.8 g/dL (6.4-8.2)
--- NOTE | 2017-05-23 07:59 | NUR ---
MS INITIAL RN NOTE: RECEIVED PATIENT AWAKE IN BED A&OX4. ON2 L NC WITH NO SIGNS OF SOB OR RESPIRATORY DISTRESS. SKIN WARM TO TOUCH, DENIES PAIN. LAC # 20G AND LFA 22 G INTACT AND PATENT. CARE PLAN REVIEWED WITH PATIENT. BED LOW, LOCKED WITH CALL LIGHT WITHIN REACH. ALL NEEDS MET AND ANTICIPATED. WILL CONT TO MONITOR.
[2017-05-23 08:00] VITALS: BP 159/104
[2017-05-23] MEDS: ATORVASTATIN 40 MG TABLET PO SCH (09:13)
[2017-05-23] MEDS: CHOLECALCIFEROL (VITAMIN D 3) 400 UNIT TABLET PO SCH (09:13)
[2017-05-23] MEDS: FOLIC ACID 1 MG TABLET PO SCH (09:13)
[2017-05-23] MEDS: FAMOTIDINE/PF INJ 20 MG/2 ML VIAL IV SCH (09:13)
[2017-05-23] MEDS: ASPIRIN 81 MG TAB.CHEW PO SCH (09:13)
[2017-05-23 09:14] VITALS: BP 159/104
[2017-05-23] MEDS: AMLODIPINE BESYLATE 5 MG TABLET PO SCH (09:14)
[2017-05-23] MEDS: LISINOPRIL (20MG) 20 MG TABLET PO SCH (09:14)
[2017-05-23] MEDS: MORPHINE SULFATE INJ 2 MG/ML DISP.SYRIN IV PRN (09:14)
[2017-05-23] MEDS: POTASSIUM CHLORIDE 20 MEQ TAB.PRT.SR PO SCH ×2 (12:30→12:50)
--- NOTE | 2017-05-23 12:50 | NUR ---
RN NOTE PATIENT DISCHARGE WITH OUT ISSUE OR CONCERN DISCHARGE PAPERWORK REVIEWED PATIENT VERBALIZED UNDERSTANDING PRESCRIPTION SENT WITH PATIENT AND FAMILY PATIENT UNABLE TO TAKE POTASSIUM SUPPLEMENT X 2 DOSES DUE TO NOT BEING ON THE UNIT WENT FOR A WALK WITH PATIENT ANTIBIOTICS NOT ADMINISTERED DUE TO IV REMOVAL PENDING DISCHARGE . PATIENT STABLE ALL QUESTIONS ANSWERED AND REVIEWED WITH THE PATIENT
== END 2017-05-23 13:52 | disposition home or self-care (01) | DRG 263 ==
LOC: ER 13:30 → TELE1 17:47 → MEDSG1 05-19 10:12 → TELE1 05-21 06:53 → MEDSG1 05-21 16:55
PROVIDERS: ADMIT Nurse Practitioner Acute Care; ATTEND Nurse Practitioner Acute Care
DX: K80.00 Calculus of gallbladder with acute cholecystitis without obstruction (principal); N17.0 Acute kidney failure with tubular necrosis; E83.42 Hypomagnesemia; D64.9 Anemia, unspecified; I10 Essential (primary) hypertension; S02.92XS Unspecified fracture of facial bones, sequela; N28.1 Cyst of kidney, acquired; E78.00 Pure hypercholesterolemia, unspecified; E78.5 Hyperlipidemia, unspecified; E87.6 Hypokalemia; K57.90 Diverticulosis of intestine, part unspecified, without perforation or abscess without bleeding; Z86.73 Personal history of transient ischemic attack (TIA), and cerebral infarction without residual deficits; I25.10 Atherosclerotic heart disease of native coronary artery without angina pectoris; K42.9 Umbilical hernia without obstruction or gangrene; Y93.71 Activity, boxing; T46.4X5A Adverse effect of angiotensin-converting-enzyme inhibitors, initial encounter; Y92.009 Unspecified place in unspecified non-institutional (private) residence as the place of occurrence of the external cause; M77.9 Enthesopathy, unspecified; Z80.0 Family history of malignant neoplasm of digestive organs
CPT/HCPCS: 36415; 71010-TC; 72128-TC; 74181-TC; 76705-TC; 80048-TC; 80053-TC; 80061-TC; 80076-TC; 83605-TC; 83690-TC; 83735-TC; 84100-TC; 84443-TC; 85025-TC; 87040-TC; 87081-TC; 88304-TC; 88305-TC; 93307-TC; 97001-TC; A4606; A6209; A6402; J0330; J0360; J0690; J1100; J1170; J2270; J2405; J2543; J2704; J2710; J3010; J3475; J3480; J3490; J7030; J7060; J7120; Z7610